=== PATIENT | female | born 1970 | race Caucasian/White ===

== ENCOUNTER 2018-11-26 11:17 | Emergency (ER) | payer OTHER ==
[2018-11-26] MEDS ORDERED: SODIUM CHLORIDE 0.9% 1,000 ML IV STA (11:43)
--- NOTE | 2018-11-26 11:49 | ED ---
General Adult HPI - General Chief complaint: Dizziness Stated complaint: Near syncope Time Seen by Provider: 11/26/18 11:36 Source: patient, RN notes reviewed Mode of arrival: ambulatory Limitations: no limitations - History of Present Illness Initial comments: Patient is a pleasant 48-year-old female presenting to the emergency Department with a near syncopal episode. Patient states she was sitting at work. Patient had an odd sensation from her chest to her neck to her head. Patient states this occurred 3 times. Patient states she felt like if she stood up she could' ve passed out. Patient did have some associated lightheadedness. No spinning type sensation. No headache. No confusion. No isolated weakness. No speech problems. No chest pain or dyspnea. Patient still has some minimal lightheadedness however states it is not bad enough to need any medication. - Related Data Home Medications Medication Instructions Recorded Confirmed Cholecalciferol [Vitamin D3] 10,000 units PO DAILY 03/30/14 11/26/18 Multivitamins, Thera [Multivitamin] 1 each PO BID 03/30/14 11/26/18 Vitamin B Complex 1 tab PO DAILY 11/26/18 11/26/18 Allergies Allergy/AdvReac Type Severity Reaction Status Date / Time No Known Allergies Allergy Verified 11/26/18 12:11 Review of Systems ROS Statement: Those systems with pertinent positive or pertinent negative responses have been documented in the HPI. ROS Other: All systems not noted in ROS Statement are negative. Constitutional: Denies: fever, chills Eyes: Denies: eye pain ENT: Denies: ear pain Respiratory: Denies: cough, dyspnea Cardiovascular: Denies: chest pain Endocrine: Denies: fatigue Gastrointestinal: Denies: abdominal pain, vomiting Genitourinary: Denies: dysuria Musculoskeletal: Denies: back pain Skin: Denies: rash Neurological: Reports: as per HPI. Denies: headache, weakness, numbness, paresthesias, confusion, abnormal gait Past Medical History Additional Past Medical History / Comment(s): palpitation, fibroids History of Any Multi-Drug Resistant Organisms: None Reported Past Surgical History: Bariatric Surgery, Section, Hysterectomy Additional Past Surgical History / Comment(s): breast biopsy, partial hysterectomy 09/2012, sleeve02/01/2014 Past Anesthesia/Blood Transfusion Reactions: Motion Sickness Past Psychological History: No Psychological Hx Reported Smoking Status: Never smoker Past Alcohol Use History: None Reported Past Drug Use History: None Reported - Past Family History Sister(s) Family Medical History: Cancer Additional Family Medical History / Comment(s): two sisters had breast cancer Father Family Medical History: Myocardial Infarction ([place]) Additional Family Medical History / Comment(s): heart disease leading to heart attack General Exam Limitations: no limitations General appearance: alert, in no apparent distress Head exam: Present: atraumatic, normocephalic Eye exam: Present: normal appearance, PERRL, EOMI. Absent: nystagmus ENT exam: Present: normal oropharynx Neck exam: Present: normal inspection. Absent: tenderness, meningismus Respiratory exam: Present: normal lung sounds bilaterally Cardiovascular Exam: Present: regular rate, normal rhythm Expanded Peripheral pulses: 2+: Radial (R), Radial (L), Dorsalis Pedis (R), Dorsalis Pedis (L) GI/Abdominal exam: Present: soft. Absent: tenderness Extremities exam: Present: normal inspection. Absent: pedal edema, calf tenderness Neurological exam: Present: alert, oriented X3, CN II-XII intact. Absent: motor sensory deficit Expanded Neurological exam: Present: protecting the airway Patient oriented to: Present: person, place, time Speech: Present: fluid speech Cranial nerves: EOM's Intact: Normal, Facial Sensation: Normal Cerebellar function: Finger to Nose: Normal Sensory exam: Upper Extremity Light Touch: Normal, Lower Extremity Light Touch: Normal Motor strength exam: RUE: 5, LUE: 5, RLE: 5, LLE: 5 Eye Response: (4) open spontaneously Motor Response: (6) obeys commands Verbal Response: (5) oriented Psychiatric exam: Present: normal affect, normal mood Skin exam: Present: normal color Course Vital Signs 11/26/18 11/26/18 11:26 13:18 Temperature 98.8 F 98.3 F Pulse Rate 90 70 Respiratory 18 16 Rate Blood Pressure 132/77 103/73 O2 Sat by Pulse 100 98 Oximetry EKG Findings - EKG Comments: EKG Findings:: Normal sinus rhythm at 90. MI 140. QRS 84. QT 364. QTC 445. Normal axis. Normal QRS. No acute ST change. Medical Decision Making - Medical Decision Making Patient reevaluated and resting comfortably in bed, patient symptom-free at this time. Patient has gotten up without any difficulty. Patient and family updated on results and need for follow-up. - Lab Data Result diagrams: 11/26/18 11:53 11/26/18 11:53 Lab Results 11/26/18 11/26/18 11/26/18 Range/Units 11:53 11:53 11:53 WBC 6.3 (3.8-10.6) k/uL RBC 4.57 (3.80-5.40) m/uL Hgb 13.0 (11.4-16.0) gm/dL Hct 40.0 (34.0-46.0) % MCV 87.5 (80.0-100.0) fL MCH 28.4 (25.0-35.0) pg MCHC 32.5 (31.0-37.0) g/dL RDW 12.7 (11.5-15.5) % Plt Count 262 (150-450) k/uL Neutrophils % 60 % Lymphocytes % 30 % Monocytes % 4 % Eosinophils % 3 % Basophils % 0 % Neutrophils # 3.8 (1.3-7.7) k/uL Lymphocytes # 1.9 (1.0-4.8) k/uL Monocytes # 0.3 (0-1.0) k/uL Eosinophils # 0.2 (0-0.7) k/uL Basophils # 0.0 (0-0.2) k/uL PT (9.0-12.0) sec INR (<1.2) APTT (22.0-30.0) sec D-Dimer (<0.60) mg/L FEU Sodium 140 (137-145) mmol/L Potassium 4.5 (3.5-5.1) mmol/L Chloride 107 (98-107) mmol/L Carbon Dioxide 25 (22-30) mmol/L Anion Gap 8 mmol/L BUN 19 H (7-17) mg/dL Creatinine 0.79 (0.52-1.04) mg/dL Est GFR (CKD-EPI)AfAm >90 (>60 ml/min/1.73 sqM) Est GFR (CKD-EPI)NonAf 89 (>60 ml/min/1.73 sqM) Glucose 105 H (74-99) mg/dL Calcium 9.6 (8.4-10.2) mg/dL Magnesium 2.1 (1.6-2.3) mg/dL Total Bilirubin 0.3 (0.2-1.3) mg/dL AST 17 (14-36) U/L ALT 22 (9-52) U/L Alkaline Phosphatase 57 (38-126) U/L Total Creatine Kinase 65 (30-135) U/L CK-MB (CK-2) <0.2 (0.0-2.4) ng/mL CK-MB (CK-2) Rel Index Troponin I <0.012 (0.000-0.034) ng/mL Total Protein 6.7 (6.3-8.2) g/dL Albumin 4.0 (3.5-5.0) g/dL TSH 1.460 (0.465-4.680) mIU/L Free T4 1.02 (0.78-2.19) ng/dL Free T3 pg/mL 3.3 (2.8-5.3) pg/ml 11/26/18 Range/Units 11:53 WBC (3.8-10.6) k/uL RBC (3.80-5.40) m/uL Hgb (11.4-16.0) gm/dL Hct (34.0-46.0) % MCV (80.0-100.0) fL MCH (25.0-35.0) pg MCHC (31.0-37.0) g/dL RDW (11.5-15.5) % Plt Count (150-450) k/uL Neutrophils % % Lymphocytes % % Monocytes % % Eosinophils % % Basophils % % Neutrophils # (1.3-7.7) k/uL Lymphocytes # (1.0-4.8) k/uL Monocytes # (0-1.0) k/uL Eosinophils # (0-0.7) k/uL Basophils # (0-0.2) k/uL PT 10.0 (9.0-12.0) sec INR 0.9 (<1.2) APTT 25.0 (22.0-30.0) sec D-Dimer 0.23 (<0.60) mg/L FEU Sodium (137-145) mmol/L Potassium (3.5-5.1) mmol/L Chloride (98-107) mmol/L Carbon Dioxide (22-30) mmol/L Anion Gap mmol/L BUN (7-17) mg/dL Creatinine (0.52-1.04) mg/dL Est GFR (CKD-EPI)AfAm (>60 ml/min/1.73 sqM) Est GFR (CKD-EPI)NonAf (>60 ml/min/1.73 sqM) Glucose (74-99) mg/dL Calcium (8.4-10.2) mg/dL Magnesium (1.6-2.3) mg/dL Total Bilirubin (0.2-1.3) mg/dL AST (14-36) U/L ALT (9-52) U/L Alkaline Phosphatase (38-126) U/L Total Creatine Kinase (30-135) U/L CK-MB (CK-2) (0.0-2.4) ng/mL CK-MB (CK-2) Rel Index Troponin I (0.000-0.034) ng/mL Total Protein (6.3-8.2) g/dL Albumin (3.5-5.0) g/dL TSH (0.465-4.680) mIU/L Free T4 (0.78-2.19) ng/dL Free T3 pg/mL (2.8-5.3) pg/ml - Radiology Data Radiology results: report reviewed (Computed tomography scan the brain shows no acute process), image reviewed (Chest x-ray shows some peribronchial cuffing) Disposition Clinical Impression: Near syncope Disposition: HOME SELF-CARE Condition: Stable Instructions (If sedation given, give patient instructions): Near Syncope (ED) Additional Instructions: Please follow-up with primary care physician in the next couple days for recheck. Return for passing out, confusion, chest pain or shortness of breath, worsening or changing symptoms or other concerns. Is patient prescribed a controlled substance at d/c from ED?: No Referrals: Gianfranco Nolan MD [STAFF PHYSICIAN] - 1-2 days Jarad Benton III, MD [STAFF PHYSICIAN] - 1-2 days Time of Disposition: 13:47
[2018-11-26 12:28] LABS: Basophils % (A) 0 %; Eosinophils # (A) 0.2 k/uL (0-0.7); Eosinophils % (A) 3 %; Lymphocytes # (A) 1.9 k/uL (1.0-4.8); Lymphocytes % (A) 30 %; MCH 28.4 pg (25.0-35.0); MCHC 32.5 g/dL (31.0-37.0); MCV 87.5 fL (80.0-100.0); Mean Platelet Volume 6.7; Monocytes # (A) 0.3 k/uL (0-1.0); Monocytes % (A) 4 %; Neutrophils # (A) 3.8 k/uL (1.3-7.7); Neutrophils % (A) 60 %; Platelet Count 262 k/uL (150-450); RBC 4.57 m/uL (3.80-5.40); RDW 12.7 % (11.5-15.5); WBC 6.3 k/uL (3.8-10.6)
--- NOTE | 2018-11-26 12:31 | CT ---
EXAMINATION TYPE: CT brain wo con DATE OF EXAM: 11/26/2018 COMPARISON: None HISTORY: 48-year-old female Syncope, Dizziness, SOB, Slight Headache TECHNIQUE: Examination was done in axial plane without intravenous contrast. Coronal and sagittal r econstructions performed. CT DLP: 1082.4 mGycm Automated exposure control for dose reduction was used. FINDINGS: There is no evidence of acute intracranial hemorrhage, acute ischemic changes, mass, mass-effect, or extra-axial fluid collection. There is no effacement of cerebral sulci or basal subarachnoid cister ns. There is no hydrocephalus. There is no midline shift. Matos-white matter distinction is preserv ed. Hypodensity in the right basal ganglia could represent an incidental old lacunar infarct or prominent perivascular space. Paranasal sinuses and mastoid air cells well pneumatized. Orbits and globes are intact. IMPRESSION: No acute intracranial abnormality seen.
[2018-11-26 12:35] LABS: ALT 22 U/L (9-52); AST 17 U/L (14-36); Alkaline Phosphatase 57 U/L (38-126); Anion Gap 8 mmol/L; Blood Urea Nitrogen 19 mg/dL (7-17); Calcium 9.6 mg/dL (8.4-10.2); Carbon Dioxide 25 mmol/L (22-30); Chloride 107 mmol/L (98-107); Glucose 105 mg/dL (74-99); Magnesium 2.1 mg/dL (1.6-2.3); Potassium 4.5 mmol/L (3.5-5.1); Sodium 140 mmol/L (137-145); Total Bilirubin 0.3 mg/dL (0.2-1.3); Total Protein 6.7 g/dL (6.3-8.2)
[2018-11-26 12:36] LABS: D-Dimer 0.23 mg/L FEU (<0.60); INR 0.9 (<1.2)
--- NOTE | 2018-11-26 12:42 | XR ---
EXAMINATION TYPE: XR chest 2V DATE OF EXAM: 11/26/2018 COMPARISON: 02/03/2014 HISTORY: 48-year-old female syncope TECHNIQUE: PA and lateral views FINDINGS: Heart normal size. Aorta and pulmonary vasculature within normal limits. Peribronchial cuffing is not ed. No consolidation or pleural effusion. IMPRESSION: Peribronchial cuffing suggesting bronchitis or asthma.
[2018-11-26 12:50] LABS: T4, Free (Free Thyroxine) 1.02 ng/dL (0.78-2.19)
[2018-11-26 13:02] LABS: Creatine Kinase 65 U/L (30-135)
[2018-11-26 13:14] LABS: Creatine Kinase MB <0.2 ng/mL (0.0-2.4); Troponin I <0.012 ng/mL (0.000-0.034)
[2018-11-26 13:22] VITALS: BP 103/73; PULSE 70; RESP 16; TEMP 98.3
[2018-11-26 14:31] LABS: Appearance,Urine Cloudy (Clear); Bacteria,Urine Moderate /hpf; Bilirubin,Urine Negative (Negative); Blood,Urine Negative (Negative); Budding Yeast,Urine Rare /hpf; Color,Urine Dark Yellow; Glucose,Urine (UA) Negative (Negative); Ketones,Urine Negative (Negative); Leukocyte Esterase,Urine Negative (Negative); Mucus,Urine Many /hpf; Nitrite,Urine Negative (Negative); Protein,Urine Trace (Negative); RBC,Urine 6 /hpf (0-5); Specific Gravity,Urine 1.023 (1.001-1.035); Squamous Epithelial Cell,Urine 14 /hpf (0-4); Urobilinogen,Urine <2.0 mg/dL (<2.0); WBC,Urine 7 /hpf (0-5)
== END 2018-11-26 14:10 | disposition home or self-care (01) ==
LOC: EC 11:17
DX: R55 Syncope and collapse (principal); R42 Dizziness and giddiness
CPT/HCPCS: 36415; 70450; 71046; 80053; 81001; 82550; 82553; 83735; 84439; 84443; 84481; 84484; 85025; 85379; 85610; 85730; 93005; 96360; 99284

== ENCOUNTER → 2022-02-21 | Outpatient (CLI) | payer BC ==
--- NOTE | 2022-02-22 13:41 | MM ---
Reason for exam: clinical finding. History: Family history of breast cancer in sister at age 30 and breast cancer in sister at age 40. Benign excisional biopsy of the left breast, 2011. Indicated problem(s): lump or thickening in the left breast. Physical Findings: A clinical breast exam by your physician is recommended on an annual basis and results should be correlated with mammographic findings. MG Diagnostic Mammo w CAD BERNABE Bilateral CC and MLO view(s) were taken. The breast tissue is heterogeneously dense. This may lower the sensitivity of mammography. 4cm spiculated mass 1 o'clock left breast. 9mm nodule seen anteriorly. No mass or suspicious calcifications in the right breast. Results were given to the patient verbally at the time of the exam. ASSESSMENT: Incomplete: need additional imaging evaluation, BI-RAD 0 RECOMMENDATION: Ultrasound of the left breast. Manage patient on a clinical basis.
--- NOTE | 2022-02-22 13:44 | USB ---
Reason for exam: additional evaluation requested from abnormal screening. History: Family history of breast cancer in sister at age 30 and breast cancer in sister at age 40. Benign excisional biopsy of the left breast, 2011. Physical Findings: A clinical breast exam by your physician is recommended on an annual basis and results should be correlated with mammographic findings. US Breast Limited LT Left limited breast ultrasound including focal area of concern, retroareolar and axilla demonstrates a 9 x 5 x 7mm oval, cystic lesion at 2 o'clock and a 27 x 29 x 30mm irregular, spiculated, solid, hypoechoic lesion at 3 o'clock palpable. Results were given to the patient verbally at the time of the exam. ASSESSMENT: Highly suggestive of malignancy, BI-RAD 5 RECOMMENDATION: Ultrasound core biopsy of the left breast. Manage patient on a clinical basis. Called Dr. Vargas's office with mammographic findings and office will call patient with appointment time. PRELIMINARY REPORT CALLED AND FAXED TO DR. VARGAS ON 02/22/22.
== END | disposition home or self-care (01) ==
LOC: RADMAMWWP 08:44
PROVIDERS: ATTEND Family Medicine
DX: R92.8 Other abnormal and inconclusive findings on diagnostic imaging of breast (principal); N60.02 Solitary cyst of left breast; Z80.3 Family history of malignant neoplasm of breast
CPT/HCPCS: 77066

== ENCOUNTER → 2022-03-06 | Day surgery (SDC) | payer BC ==
--- NOTE | 2022-03-06 14:13 | USB ---
EXAMINATION TYPE: US biopsy breast VAD LT, MG diagnostic mammo LT wo CAD DATE OF EXAM: 03/06/2022 CLINICAL HISTORY: N62 Lump Left breast. Abnormal ultrasound and mammogram. TECHNIQUE: Ultrasound guided core biopsy of left breast with clip placement and follow-up diagnostic two-view mammogram.. COMPARISON: Prior mammogram and ultrasound February 21, 2022 FINDINGS: The procedure of ultrasound guided core biopsy was explained to the patient. Benefits, alt ernatives, and risks were discussed. An informed consent was then obtained. The patient was placed in supine positioning for imaging and for the procedure. Preprocedure imaging redemonstrates a large palpable irregular hypoechoic mass measuring near 3.0 cm long axis in the edwige p left breast at 3:00 position. The overlying skin was prepped and draped in usual sterile fashion. L idocaine is used as anesthetic into the skin and subcutaneous tissue up to area of concern in the lef t breast. Under ultrasound guidance, a vacuum assisted biopsy gun device was used to obtain 2 core samples. Fo llowing this, a biopsy clip was left in lesion. The patient tolerated the procedure well without any immediate complication. The patient was kept in the radiology department for short stay after the procedure and then discharged home in stable condi tion. Postprocedure mammogram shows successful deployment of clip within the lesion along the slightly infe rior medial aspect. IMPRESSION: Successful, uncomplicated ultrasound guided core biopsy of area of concern in the left br east, full pathology results to follow. High index of suspicion noted at time of procedure.
== END ==
LOC: RADUSWWP 12:05
PROVIDERS: ATTEND Surgery
DX: D05.12 Intraductal carcinoma in situ of left breast (principal); R92.8 Other abnormal and inconclusive findings on diagnostic imaging of breast
CPT/HCPCS: 88305; 88342; 88341; 77065; 19083; A4648

== ENCOUNTER → 2022-04-06 | Outpatient (CLI) | payer OTHER ==
--- NOTE | 2022-04-12 07:41 | PE ---
EXAMINATION TYPE: PET CT fusion skull to thigh DATE OF EXAM: 04/06/2022 COMPARISON: CT abdomen pelvis 11/13/2021 Prior PET/CT: None HISTORY: Breast cancer TECHNIQUE: Following the intravenous administration of 10.57 mCi of F-18 FDG, whole body images are performed from the skull base to the midthigh. Images are reviewed on the computer in the coronal, a xial, and sagittal planes. Reconstructed rotating images are created on independent workstation and reviewed on the computer. A localization and attenuation correction CT is performed in conjunction with the PET scan. DLP: 474.65 mGycm SCAN: Initial Blood glucose: 88 mg/dL Average Mediastinum SUV: 1.17 Average Liver SUV: 1.89 FINDINGS: NECK: No abnormal uptake THORAX: There is a large ring of intensity within the left breast SUV value of 6.04 compatible with n eoplasm. This may has central necrosis or postsurgical change. More inferior and posterior adjacent t o the chest wall is an additional focus of left breast uptake measuring 8.49 compatible with neoplasm . This extends to the chest wall. There is a focus of intense radiotracer within the retrosternal region on the left may be an retromam john lymph node. Image 76, SUV 7.93. No suspicious mediastinal or axillary adenopathy is identified. ABDOMEN: No abnormal uptake PELVIS: No abnormal uptake OSSEOUS STRUCTURES: No abnormal uptake LOCALIZATION CT: Patient's left breast mass secondary chest wall mass well-visualized. The area of up take on the PET scan in the retrosternal region can be identified. Post gastric surgery changes are e vident. COMPARISON: No significant interval change within the [id number] IMPRESSION: 1. Uptake at the patient's left breast with 2 foci including the second smaller chest wall lesion com patible with neoplasm. 2. Uptake near the level of the left sternal clavicular junction posterior to the sternum may be a re tromammary lymph node, this area is suspicious for metastasis. 3. No additional suspicious areas of uptake to suggest more distant metastases.
== END | disposition home or self-care (01) ==
LOC: RADPETMAIN 16:19
PROVIDERS: ATTEND Internal Medicine Hematology & Oncology
DX: C50.919 Malignant neoplasm of unspecified site of unspecified female breast (principal); J98.8 Other specified respiratory disorders; Z17.1 Estrogen receptor negative status [ER-]
CPT/HCPCS: 78815; A9552

== ENCOUNTER 2022-04-17 08:43 | Day surgery (SDC) | payer OTHER ==
[2022-04-13 11:27] VITALS: BMI 45.3
[~2022-04-17 08:43] MED LIST: ACETAMINOPHEN TAB 500 MG TAB PO PRN; DEXAMETHASONE SOD PHOSPHATE 4 MG/ML 1 ML VIAL IV ONE; HEPARIN SODIUM,PORCINE/PF 5,000 UNIT/0.5 ML SYRINGE SQ PRN; HYDROmorphone 0.5 MG/0.5 ML SYRINGE IVP PRN; LACTATED RINGERS 1,000 ML IV SCH; LIDOCAINE 1% (10MG/ML) FOR IV START INTRADERMA PRN; MIDAZOLAM 2 MG/2 ML VIAL IV PRN; ONDANSETRON 4 MG/2 ML VIAL IVP ONE; Pre Op ABX Message 1 EACH MISC MISCELLANE ONE
--- NOTE | 2022-04-17 09:55 | P.GSHP ---
History of Present Illness H&P Date: 04/17/22 Chief Complaint: Left breast cancer This a 49-year-old female with recent diagnosis of left breast cancer. Patient presents today for Port-A-Cath placement. Past Medical History Past Medical History: Cancer, GERD/Reflux Additional Past Medical History / Comment(s): palpitation,. NEW DX LT BREAST CANCER 03/06/22 History of Any Multi-Drug Resistant Organisms: None Reported Past Surgical History: Bariatric Surgery, Breast Surgery, Section, Hysterectomy Additional Past Surgical History / Comment(s): left breast biopsy, partial hysterectomy 09/2012, sleeve 02/01/2014, Past Anesthesia/Blood Transfusion Reactions: Motion Sickness Smoking Status: Never smoker - Past Family History Sister(s) Family Medical History: Cancer Additional Family Medical History / Comment(s): two sisters had breast cancer Father Family Medical History: Myocardial Infarction ([place]) Additional Family Medical History / Comment(s): heart disease leading to heart attack Medications and Allergies Home Medications Medication Instructions Recorded Confirmed Type No Known Home Medications 04/13/22 04/17/22 History Allergies Allergy/AdvReac Type Severity Reaction Status Date / Time No Known Allergies Allergy Verified 04/17/22 09:29 Surgical - Exam Vital Signs Temp Pulse Resp BP Pulse Ox 98.2 F 84 16 131/69 98 04/17/22 09:36 04/17/22 09:36 04/17/22 09:36 04/17/22 09:36 04/17/22 09:36 - General well developed, well nourished, no distress - Eyes PERRL - ENT normal pinna - Neck no masses - Respiratory normal expansion - Cardiovascular Rhythm: regular - Abdomen Abdomen: soft - Integumentary 4 cm mass left breast upper outer quadrant Assessment and Plan Assessment: Left breast cancer. We'll perform Port-A-Cath placement.
[2022-04-17] MEDS ORDERED: LIDOCAINE 2% INJ 20 MG/ML (2 ML VIAL) ONE (10:11)
[2022-04-17] MEDS ORDERED: fentaNYL (PF) 50 MCG/ML 2 ML AMP ONE (10:11)
[2022-04-17] MEDS ORDERED: PROPOFOL 10 MG/ML 20 ML VIAL IV ONE (10:11)
[2022-04-17] MEDS ORDERED: MIDAZOLAM 2 MG/2 ML VIAL ONE (10:11)
[2022-04-17] MEDS ORDERED: IOPAMIDOL-370 50ML BTL IRRIGATION ONE (10:15)
[2022-04-17] MEDS ORDERED: HEPARIN SODIUM,PORCINE 100 UNIT/ML 5 ML VIAL IV ONE (10:15)
[2022-04-17] MEDS ORDERED: BUPIVACAIN-EPI 0.25%-1:200,000 30 ML VIAL SQ ONE ×3 (10:15→11:01)
[2022-04-17 11:14] VITALS: TEMP 97.3
--- NOTE | 2022-04-17 11:16 | P.OP ---
Date of Procedure: 04/17/22 Preoperative Diagnosis: Left breast cancer Postoperative Diagnosis: Left breast cancer Procedure(s) Performed: Right subclavian Port-A-Cath Anesthesia: JOSE JUAN Surgeon: Kunal Morrell Estimated Blood Loss (ml): 5 Pathology: other Condition: stable Disposition: PACU Description of Procedure: The patient was placed on the operating table in the supine position. The patient received IV sedation. The patient's chest was prepped and draped in the usual sterile fashion. A roll had been placed between the shoulder blades in a longitudinal fashion. After prepping and draping the skin was anesthetized 1% local Xylocaine. And then using the Seldinger technique the subclavian vein was cannulated. A wire was placed into the vein and fluoroscopy position the wire at the atrial caval junction. Next the dilator sheath was placed over top the wire and the wire was withdrawn. The catheter was positioned at the atriocaval position. Due to the patient's obesity. The Port-A-Cath was positioned more centrally close to the sternum. The catheter was positioned the tunneler and placed at the needle site. The catheter was placed through the sheath after the dilator was withdrawn. The sheath was then withdrawn. Position of the catheter was confirmed with fluoroscopy. The Port-A-Cath was connected to the catheter. The Port-A-Cath was flushed with saline and then heparinized saline. The skin was closed interrupted 3-0 Monocryl suture. Dermabond was applied. Patient tolerated procedure well and was sent to recovery room stable condition.
[2022-04-17] MEDS ORDERED: HYDROmorphone 0.5 MG/0.5 ML SYRINGE IVP ONE (11:30)
--- NOTE | 2022-04-17 11:46 | XR ---
EXAMINATION TYPE: XR chest 1V portable DATE OF EXAM: 04/17/2022 Comparison: 11/26/2018 Clinical History: 52-year-old female Right subclavian Port-A-Cath Findings: Low lung volumes. Heart mildly enlarged. Mild interstitial prominence probably due to the diminished lung volumes. Right anterior chest wall injection port. There is tortuous course of the proximal cath eter. Subclavian access. Very subtle kinking where the catheter crosses the medial clavicle. Catheter tip probably in the region of the right brachiocephalic vein confluence. Impression: 1. Right-sided injection port. Tortuous/redundant proximal aspect of the catheter. Subclavian access. Very subtle kinking where the catheter crosses the medial right clavicle. Catheter tip is high proba gena near the right brachiocephalic vein confluence. 2. Mild cardiomegaly and hypoventilatory changes.
[2022-04-17 12:38] VITALS: BP 112/69; PULSE 77; RESP 18
--- NOTE | 2022-04-17 13:26 | FL ---
Fluoroscopy HISTORY: Port-A-Cath placement 39 seconds fluoroscopy time supplied to the referring clinician. 1 intraoperative C-arm images docum ent the procedure. See dictated report from general surgery.
== END 2022-04-17 12:52 | disposition home or self-care (01) ==
LOC: OR 08:43
PROVIDERS: ATTEND Surgery
DX: C50.912 Malignant neoplasm of unspecified site of left female breast (principal); K21.9 Gastro-esophageal reflux disease without esophagitis; R00.2 Palpitations; Z98.84 Bariatric surgery status; Z98.891 History of uterine scar from previous surgery; Z90.710 Acquired absence of both cervix and uterus; Z80.3 Family history of malignant neoplasm of breast; Z82.49 Family history of ischemic heart disease and other diseases of the circulatory system
CPT/HCPCS: 77001; 71045; 36561; C1788; J2250; J1642; J1100; J2405; J3010; J2704; J1170; Q9967; J1644; J2001

== ENCOUNTER → 2022-06-22 | Outpatient (CLI) | payer OTHER ==
[2022-06-22 23:18] LABS: ALT 19 U/L (8-44); AST 14 U/L (13-35); African American GFR (CKD) 114.6 (60.0-200.0); Albumin 4.3 g/dL (3.8-4.9); Albumin/Globulin Ratio 2.15 (1.60-3.17); Alkaline Phosphatase 81 U/L (41-126); BUN/Creat Ratio 18.29 Ratio (12.00-20.00); Blood Urea Nitrogen 12.8 mg/dL (9.0-27.0); Calcium 9.3 mg/dL (8.7-10.3); Carbon Dioxide 27.2 mmol/L (20.0-27.5); Chloride 107 mmol/L (96-109); Glucose 120 mg/dL (70-110); Non-African American GFR(CKD) 98.9 (60.0-200.0); Potassium 4.2 mmol/L (3.5-5.5); Sodium 143 mmol/L (135-145); Total Bilirubin <0.15 mg/dL (0.30-1.20); Total Protein 6.3 g/dL (6.2-8.2)
[2022-06-22 23:23] LABS: Basophils # (A) 0.05 X 10*3/uL (0.00-0.10); Basophils % (A) 0.8 %; Eosinophils % (A) 1.7 %; HCT 35.6 % (37.2-46.3); HGB 11.2 g/dL (12.0-15.0); Immature Grans, Automated 0.2 %; Lymphocytes # (A) 2.15 X 10*3/uL (0.90-5.00); MCH 28.7 pg (27.0-32.0); MCHC 31.5 g/dL (32.0-37.0); MCV 91.3 fL (80.0-97.0); Mean Platelet Volume 10.8 fL (9.5-12.2); Monocytes # (A) 0.37 X 10*3/uL (0.20-1.00); Monocytes % (A) 6.2 %; NRBC Per 100 WBC 0 /100 WBCS (0.0-0.0); Neutrophils % (A) 55.1 %; Platelet Count 262 X 10*3/uL (140-440); WBC 5.98 X 10*3/uL (4.50-10.00)
== END | disposition home or self-care (01) ==
LOC: LABWHC1 16:50
PROVIDERS: ATTEND Internal Medicine Hematology & Oncology
DX: C50.412 Malignant neoplasm of upper-outer quadrant of left female breast (principal); M12.9 Arthropathy, unspecified; J45.998 Other asthma; Z17.1 Estrogen receptor negative status [ER-]
CPT/HCPCS: 36415; 80053; 85025

== ENCOUNTER → 2022-07-06 | Outpatient (CLI) | payer OTHER ==
--- NOTE | 2022-07-06 15:24 | PE ---
EXAMINATION TYPE: PET CT fusion skull to thigh DATE OF EXAM: 07/06/2022 COMPARISON: Prior PET/CT April 06, 2022 HISTORY: Left-sided breast cancer diagnosed January 2022 TECHNIQUE: Following the intravenous administration of 12.9 mCi of F-18 FDG, whole body images are p erformed from the skull base to the midthigh. Images are reviewed on the computer in the coronal, ax ial, and sagittal planes. Reconstructed rotating images are created on independent workstation and r eviewed on the computer. A localization and attenuation correction CT is performed in conjunction w ith the PET scan. Blood glucose level equals 94. SCAN: Subsequent Scan FINDINGS: SKULL BASE AND NECK: No new areas of abnormal hypermetabolic uptake. CHEST, MEDIASTINUM, AND HILAR REGION: Positive treatment response to known left breast neoplasm now m easuring 3.0 x 2.8 cm on axial image 90 diminished in size from prior study with surgical clip anteri or inferior aspect currently ametabolic. Smaller hypermetabolic mass inferior and medial to this near the chest wall also diminished in size m easuring 1.7 x 1.0 cm current study image 100 and currently ametabolic. Abnormal for metabolic lymph nodes in the anterior superior mediastinum left aspect anterior to the a ortic arch are now ametabolic and not visualized. No new areas of abnormal hypermetabolic uptake. ABDOMEN AND PELVIS: Normal excretion. No new areas of abnormal hypermetabolic uptake. OSSEOUS STRUCTURES: Mild diffuse uptake presumed posttreatment response. OTHER CT: New right-sided subclavian catheter terminating before the SVC confluence. Surgical changes from gastric sleeve procedure redemonstrated. Uterus surgically absent or markedly a trophic. IMPRESSION: Complete positive treatment response as detailed above on PET images. Significant partial positive treatment response on CT images.
== END | disposition home or self-care (01) ==
LOC: RADXRMAIN 13:30
PROVIDERS: ATTEND Internal Medicine Hematology & Oncology
DX: C50.412 Malignant neoplasm of upper-outer quadrant of left female breast (principal)
CPT/HCPCS: 78815; A9552

== ENCOUNTER → 2022-08-06 | Outpatient (CLI) | payer OTHER ==
--- NOTE | 2022-08-07 09:15 | CA ---
Transthoracic Echo Report Name: Ria Castro Age: 52 Gender: F : 1970 Exam Date: 08/06/2022 13:53 Exam Location: [facility] Ht (in): 62 Wt (lb): 235 Ordering Physician: Josh Johnston MD Attending/Referring Phys: Social Services Director Rayna Webb RDCS Procedure CPT: Indications: Z01.818 ENCOUNTER FOR OTHER PREPROCEDURAL EXAMINAT Cardiac Hx: Technical Quality: Fair Contrast 1: Total Dose (mL): Contrast 2: Total Dose (mL): MEASUREMENTS (Male / Female) Normal Values 2D ECHO LV Diastolic Diameter PLAX 3.7 cm 4.2 - 5.9 / 3.9 - 5.3 cm LV Systolic Diameter PLAX 2.4 cm IVS Diastolic Thickness 1.4 cm 0.6 - 1.0 / 0.6 - 0.9 cm LVPW Diastolic Thickness 1.4 cm 0.6 - 1.0 / 0.6 - 0.9 cm LV Relative Wall Thickness 0.8 RV Internal Dim ED PLAX 3.0 cm LA Volume 48.6 cm??? 18 - 58 / 22 - 52 cm??? M-MODE Aortic Root Diameter MM 2.7 cm LA Systolic Diameter MM 3.7 cm LA Ao Ratio MM 1.3 AV Cusp Separation MM 2.0 cm DOPPLER AV Peak Velocity 112.5 cm/s AV Peak Gradient 5.1 mmHg LVOT Peak Velocity 83.5 cm/s LVOT Peak Gradient 2.8 mmHg MV Area PHT 3.3 cm??? Mitral E Point Velocity 71.8 cm/s Mitral A Point Velocity 81.4 cm/s Mitral E to A Ratio 0.9 MV Deceleration Time 232.2 ms FINDINGS Left Ventricle Moderately increased left ventricular wall thickness. Normal left ventricular systolic function with no obvious regional wall motion abnormalities. Left ventricular ejection fraction is estimated at 55-60 %. Right Ventricle Normal right ventricular size and function. Right ventricular systolic pressure within normal limits. Right Atrium Normal right atrial size. Left Atrium Normal left atrial size. No evidence for an atrial septal defect. Mitral Valve Structurally normal mitral valve. No mitral stenosis, regurgitation or prolapse. Aortic Valve Trileaflet aortic valve. No aortic valve stenosis or regurgitation. Tricuspid Valve Structurally normal tricuspid valve. Mild tricuspid regurgitation. Pulmonic Valve Structurally normal pulmonic valve. Trace pulmonic regurgitation. Pericardium No pericardial effusion. Aorta Normal size aortic root and proximal ascending aorta. CONCLUSIONS 1. normal size and systolic function 2. Mild tricuspid regurgitation 3. No pericardial effusion Previewed by: Dr. Barbara Burgess MD (Electronically Signed) Final Date: 07 August 2022 09:15
== END | disposition home or self-care (01) ==
LOC: RADECHMAIN 13:51
PROVIDERS: ATTEND Internal Medicine Hematology & Oncology
DX: Z01.818 Encounter for other preprocedural examination (principal); I07.9 Rheumatic tricuspid valve disease, unspecified
CPT/HCPCS: 93306

== ENCOUNTER 2022-08-28 12:54 | Day surgery (SDC) | payer OTHER ==
[2022-08-28 13:53] VITALS: BP 117/68; PULSE 92; RESP 16; TEMP 97.2
--- NOTE | 2022-08-29 08:42 | IR ---
Port-A-Cath check HISTORY: Chest portable occlusion, malfunctioning Port-A-Cath Patient's indwelling port was evaluated under real-time fluoroscopy, comparison to previous image 04/04 The port was accessed by the interventional radiology nurse. Gentle hand-injection of contrast materi al was performed under fluoroscopic observation. Catheter was subsequently flushed and flushed again with heparin flush. Patient remained in stable condition without complication. The port is intact. There is no evident leak. Catheter tip may be within a tributary of the superior vena cava or innominate vein. Contrast flows away from the catheter tip consistent with intravenous p lacement. IMPRESSION: Suboptimal catheter tip placement, referring clinician was informed of the findings at th e time of performance of the exam.
== END 2022-08-28 14:37 | disposition home or self-care (01) ==
LOC: CATHCVL 12:54
PROVIDERS: ATTEND Radiology Diagnostic Radiology
DX: Z45.09 Encounter for adjustment and management of other cardiac device (principal); J45.998 Other asthma; Z90.710 Acquired absence of both cervix and uterus; Z98.891 History of uterine scar from previous surgery; Z80.3 Family history of malignant neoplasm of breast; Z17.1 Estrogen receptor negative status [ER-]; Z14.8 Genetic carrier of other disease; Z71.3 Dietary counseling and surveillance
CPT/HCPCS: 36598

== ENCOUNTER 2022-09-03 11:43 | Day surgery (SDC) | payer OTHER ==
[~2022-09-03 11:43] MED LIST changes: -DEXAMETHASONE SOD PHOSPHATE 4 MG/ML 1 ML VIAL IV ONE; -HYDROmorphone 0.5 MG/0.5 ML SYRINGE IVP PRN; -LACTATED RINGERS 1,000 ML IV SCH; -LIDOCAINE 1% (10MG/ML) FOR IV START INTRADERMA PRN; -MIDAZOLAM 2 MG/2 ML VIAL IV PRN; -ONDANSETRON 4 MG/2 ML VIAL IVP ONE
[2022-09-03] MEDS ORDERED: ONDANSETRON 4 MG/2 ML VIAL ONE (12:45)
[2022-09-03] MEDS ORDERED: LACTATED RINGERS 1,000 ML IV ONE (12:57)
[2022-09-03] MEDS ORDERED: ONDANSETRON 4 MG/2 ML VIAL IVP ONE (12:59)
[2022-09-03] MEDS ORDERED: DEXAMETHASONE SOD PHOSPHATE 4 MG/ML 1 ML VIAL IVP ONE (12:59)
--- NOTE | 2022-09-03 13:26 | P.GSHP ---
History of Present Illness H&P Date: 09/03/22 Chief Complaint: Port-A-Cath malfunction, history of breast cancer This a 51-year-old female who presents today for removal of Port-A-Cath insertion of new Port-A-Cath. Patient's history of breast cancer. Past Medical History Past Medical History: Cancer, GERD/Reflux Additional Past Medical History / Comment(s): palpitation,. 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 Past Anesthesia/Blood Transfusion Reactions: No Reported Reaction, Motion Sickness Smoking Status: Never smoker - Past Family History Sister(s) Family Medical History: Cancer Additional Family Medical History / Comment(s): two sisters had breast cancer Father Family Medical History: Myocardial Infarction ([place]) Additional Family Medical History / Comment(s): heart disease leading to heart attack Medications and Allergies Home Medications Medication Instructions Recorded Confirmed Type Aprepitant [Emend] 80 mg PO DAILY 08/28/22 08/30/22 History Cyclobenzaprine [Flexeril] 5 mg PO QID PRN 08/28/22 08/30/22 History Gabapentin [Neurontin] 300 mg PO TID 08/28/22 08/30/22 History OLANZapine [ZyPREXA] 2.5 mg PO HS 08/28/22 08/30/22 History Ondansetron [Zofran] 4 mg PO Q4HR PRN 08/28/22 08/30/22 History Ascorbic Acid [Vitamin C] 1 tab PO DAILY 08/30/22 08/30/22 History Cholecalciferol [Vitamin D3 (125 2 tab PO DAILY 08/30/22 08/30/22 History Mcg = 5000 Iu)] Krill/Om-3/Dha/Epa/Phospho/Ast 1 each PO DAILY 08/30/22 08/30/22 History [[place]-3 Krill Oil 300 mg Sfgl] Multivitamin [Multivitamins Adult 1 tab PO DAILY 08/30/22 08/30/22 History Gummies] Vit B Comp/Folic/Choline/Inosi 1 each PO DAILY 08/30/22 08/30/22 History [B-100 Complex Capsule] Allergies Allergy/AdvReac Type Severity Reaction Status Date / Time No Known Allergies Allergy Verified 09/03/22 12:08 Surgical - Exam Vital Signs Temp Pulse Resp BP Pulse Ox 96.9 F L 98 16 119/69 98 09/03/22 13:00 09/03/22 13:00 09/03/22 13:00 09/03/22 13:00 09/03/22 13:00 - General well developed, well nourished, no distress - Eyes PERRL - ENT normal pinna - Neck no masses, no bruits - Respiratory normal expansion - Cardiovascular Rhythm: regular - Abdomen Abdomen: soft, non tender Assessment and Plan Assessment: Patient will have her right subcu Port-A-Cath removal. And New Port-A-Cath placed.
[2022-09-03] MEDS ORDERED: LIDOCAINE 2% INJ 20 MG/ML (2 ML VIAL) ONE (14:00)
[2022-09-03] MEDS ORDERED: fentaNYL (PF) 50 MCG/ML 2 ML AMP ONE (14:00)
[2022-09-03] MEDS ORDERED: MIDAZOLAM 2 MG/2 ML VIAL ONE (14:00)
[2022-09-03] MEDS ORDERED: ceFAZolin 1,000 MG VIAL ONE (14:00)
[2022-09-03] MEDS ORDERED: SODIUM CHLORIDE 0.9% 100 ML BAG ONE (14:00)
[2022-09-03] MEDS ORDERED: PROPOFOL 10 MG/ML 20 ML VIAL IV ONE (14:00)
[2022-09-03] MEDS ORDERED: BUPIVACAINE (PF) 0.5% 30 ML VIAL SQ ONE (14:36)
[2022-09-03] MEDS ORDERED: HEPARIN SODIUM,PORCINE 100 UNIT/ML 5 ML VIAL IV ONE (14:36)
[2022-09-03 15:15] VITALS: TEMP 97.4
--- NOTE | 2022-09-03 15:15 | XR ---
EXAMINATION TYPE: XR chest 1V DATE OF EXAM: 09/03/2022 COMPARISON: 04/17/2022 HISTORY: 52-year-old female Mediport insertion TECHNIQUE: Single frontal view of the chest is obtained. FINDINGS: Heart upper limits of normal in size. Hazy densities related to patient body habitus. Left anterior c hest wall injection port with subclavian access. Catheter tip at the mid to lower SVC. The previous r ight-sided catheter has been removed. No consolidation, pneumothorax, or pleural effusion. IMPRESSION: Left anterior chest wall injection port with subclavian access. Catheter tip at the mid to lower SVC. Large patient body habitus. No definite acute process.
--- NOTE | 2022-09-03 15:25 | P.OP ---
Date of Procedure: 09/03/22 Preoperative Diagnosis: history of breast cancer, Port-A-Cath malfunction Postoperative Diagnosis: same Procedure(s) Performed: removal of right subclavian Port-A-Cath Insertion of left subclavian Port-A-Cath Anesthesia: JOSE JUAN Surgeon: Kunal Morrell Estimated Blood Loss (ml): 5 Pathology: none sent Condition: stable Disposition: PACU Description of Procedure: the patient's placed on the operating table in the supine position. She received general endotracheal tube anesthesia. Her chest was prepped and draped usual fashion. The skin was incised at the right subclavian port site. And then using blunt and sharp dissection with cautery the port was dissected free of in the catheter and port were removed completely. The skin was then closed interrupted 3-0 Monocryl suture. Next using the Seldinger technique the left subclavian vein was cannulized. A blush was seen in the syringe with the needle cannulated the subclavian vein. The wire was placed through the needle into the vein. The wire position was confirmed with fluoroscopy. The wire appeared to be entering the superior vena cava. At this point the needle was withdrawn. The introducer sheath placed over top the wire after suitable skin incision was made and the port site was dissected. The wire was withdrawn. The catheter was placed through the introducer sheath. And then the initial sheath was removed. The catheter was withdrawn to the point the atriocaval junction. The catheter was then cut and then secured to the port. The port was placed in the pocket. And then the skin was closed interrupted 3-0 Monocryl suture. The port was flushed with saline. And then a Dinh needle was used to access the port and then the port was flushed with heparinized saline. Sterile dressing applied. The knee Dinh needle was left in place for port access. Patient top she will well she was sent to recovery room stable condition.
[2022-09-03] MEDS ORDERED: HYDROmorphone 0.5 MG/0.5 ML SYRINGE IVP ONE (15:27)
[2022-09-03 16:13] VITALS: BP 137/79; PULSE 81; RESP 15
--- NOTE | 2022-09-03 19:33 | FL ---
EXAMINATION TYPE: FL guided central line placement DATE OF EXAM: 09/03/2022 FLUOROSCOPY Fluoroscopy time of 4 seconds was used during left-sided Port-A-Cath placement for breast cancer anders tment. 1 image/s document/s the procedure.
== END 2022-09-03 16:45 | disposition home or self-care (01) ==
LOC: OR 11:43
PROVIDERS: ATTEND Surgery
DX: T82.514A Breakdown (mechanical) of infusion catheter, initial encounter (principal); R00.2 Palpitations; I49.9 Cardiac arrhythmia, unspecified; Z79.899 Other long term (current) drug therapy
CPT/HCPCS: 77001; 71045; 36590; 36561; J2250; J1642; J1100; J2405; J0690; J3010; J2704; J1170; J1644; J2001

== ENCOUNTER 2022-11-13 06:24 | Day surgery (SDC) | payer OTHER ==
[2022-11-08 14:22] VITALS: BMI 40.8
[~2022-11-13 06:24] MED LIST changes: +DEXAMETHASONE SOD PHOSPHATE 4 MG/ML 1 ML VIAL IV ONE; +LACTATED RINGERS 1,000 ML IV SCH; +LIDOCAINE 1% (10MG/ML) FOR IV START INTRADERMA PRN; +MIDAZOLAM 2 MG/2 ML VIAL IV PRN; +ONDANSETRON 4 MG/2 ML VIAL IVP ONE
[2022-11-13 07:29] LABS: Basophils % (A) 1 %; Eosinophils # (A) 0.4 k/uL (0-0.7); Eosinophils % (A) 8 %; HCT 36.6 % (34.0-46.0); HGB 12.1 gm/dL (11.4-16.0); Lymphocytes # (A) 1.3 k/uL (1.0-4.8); Lymphocytes % (A) 26 %; MCH 30.3 pg (25.0-35.0); MCHC 33.2 g/dL (31.0-37.0); MCV 91.3 fL (80.0-100.0); Monocytes # (A) 0.3 k/uL (0-1.0); Monocytes % (A) 6 %; Neutrophils # (A) 2.8 k/uL (1.3-7.7); Neutrophils % (A) 56 %; Platelet Count 178 k/uL (150-450); RDW 13.3 % (11.5-15.5); WBC 4.9 k/uL (3.8-10.6)
[2022-11-13] MEDS ORDERED: SUCCINYLCHOLINE CHLORIDE 200 MG/10 ML VIAL IV ONE (07:46)
[2022-11-13] MEDS ORDERED: PROPOFOL 10 MG/ML 20 ML VIAL IV ONE (07:46)
[2022-11-13] MEDS ORDERED: HYDROmorphone (PF) 1 MG/ML ONE (07:46)
[2022-11-13] MEDS ORDERED: KETOROLAC 15 MG/ML 1 ML VIAL ONE (07:46)
[2022-11-13] MEDS ORDERED: MIDAZOLAM 2 MG/2 ML VIAL ONE (07:46)
[2022-11-13] MEDS ORDERED: ROCURONIUM 10 MG/ML (5 ML VIAL) IV ONE (07:46)
[2022-11-13] MEDS ORDERED: LIDOCAINE 2% INJ 20 MG/ML (2 ML VIAL) ONE (07:46)
[2022-11-13] MEDS ORDERED: fentaNYL (PF) 50 MCG/ML 2 ML AMP ONE (07:46)
[2022-11-13] MEDS ORDERED: SODIUM CHLORIDE 0.9% 50 ML with ceFAZolin 2,000 MG IV ONE ×2 (08:25)
--- NOTE | 2022-11-13 09:27 | P.GSHP ---
History of Present Illness H&P Date: 11/13/22 Chief Complaint: Left breast cancer Is a 52-year-old female who has a previous history of left breast cancer. Patient underwent neoadjuvant therapy. Patient presents today for left modified radical mastectomy and right mastectomy with bilateral breast reconstruction. Past Medical History Past Medical History: Cancer, GERD/Reflux Additional Past Medical History / Comment(s): Hx palpitations - "chalked up to too many energy drinks, has not had any palpitaions since I stopped drinking them." LEFT BREAST CANCER 03/06/22, has port on left side, last chemo treatment 09/25/22, no radiation. Neuropathy to hands and feet since started chemo. History of Any Multi-Drug Resistant Organisms: None Reported Past Surgical History: Bariatric Surgery, Breast Surgery, Section Additional Past Surgical History / Comment(s): Left breast biopsy, sleeve gastrectomy 02/01/2014, port placed and removed X2 and third port placed. Past Anesthesia/Blood Transfusion Reactions: No Reported Reaction, Motion Sickness Past Psychological History: No Psychological Hx Reported Smoking Status: Never smoker Past Alcohol Use History: None Reported Past Drug Use History: None Reported - Past Family History Sister(s) Family Medical History: Cancer Additional Family Medical History / Comment(s): Two sisters had breast cancer. Father Family Medical History: Myocardial Infarction ([place]) Additional Family Medical History / Comment(s): Heart disease leading to heart attack. Medications and Allergies Home Medications Medication Instructions Recorded Confirmed Type Ascorbic Acid [Vitamin C] 1 tab PO DAILY 08/30/22 11/13/22 History Cholecalciferol [Vitamin D3 (125 2 tab PO DAILY 08/30/22 11/13/22 History Mcg = 5000 Iu)] Krill/Om-3/Dha/Epa/Phospho/Ast 1 each PO DAILY 08/30/22 11/13/22 History [[place]-3 Krill Oil 300 mg Sfgl] Multivitamin [Multivitamins Adult 1 tab PO DAILY 08/30/22 11/13/22 History Gummies] Gabapentin 600 mg PO TID 11/08/22 11/13/22 History Vitamin B Complex 1 each PO DAILY 11/08/22 11/13/22 History Allergies Allergy/AdvReac Type Severity Reaction Status Date / Time No Known Allergies Allergy Verified 11/13/22 06:49 Surgical - Exam Vital Signs Temp Pulse Resp BP Pulse Ox 97.5 F L 88 16 130/77 98 11/13/22 07:21 11/13/22 07:21 11/13/22 07:21 11/13/22 07:21 11/13/22 07:21 - General well developed, well nourished, no distress - Eyes PERRL - ENT normal pinna - Neck no masses - Respiratory normal expansion - Cardiovascular Rhythm: regular - Abdomen Abdomen: soft, non tender - Integumentary Breast exam shows no obvious mass of left breast. There are multiple healed chest wall incisions from previous Port-A-Cath Results - Labs 11/13/22 07:10 Assessment and Plan Assessment: History of left breast cancer. Patient undergo left modified radical mastectomy and right simple mastectomy with immediate implant reconstruction Dr. Loza.
[2022-11-13] MEDS ORDERED: NALOXONE 0.4 MG/ML 1 ML VIAL IV PRN (09:32)
[2022-11-13] MEDS ORDERED: LACTATED RINGERS 1,000 ML IV ONE ×3 (09:32→12:02)
[2022-11-13] MEDS ORDERED: HYDROcodone/APAP 5-325MG 1 EACH TAB PO PRN (09:32)
[2022-11-13] MEDS ORDERED: HYDROmorphone 0.5 MG/0.5 ML SYRINGE IVP PRN (09:32)
[2022-11-13] MEDS ORDERED: HYDROmorphone 1 MG/ML 1 ML SYRINGE IVP PRN (09:32)
[2022-11-13] MEDS ORDERED: ONDANSETRON 4 MG/2 ML VIAL IVP PRN (09:32)
--- NOTE | 2022-11-13 09:32 | P.OP ---
Date of Procedure: 11/13/22 Preoperative Diagnosis: Left breast cancer Postoperative Diagnosis: Left breast cancer Procedure(s) Performed: Left modified radical mastectomy Right simple mastectomy Implant reconstructions by Dr. Loza Anesthesia: JOSE JUAN Surgeon: Kunal Morrell Estimated Blood Loss (ml): 50 Pathology: other (Right simple mastectomy, left modified radical mastectomy) Condition: stable Disposition: PACU Description of Procedure: The patient had been previously marked by Dr. Meza in the preoperative hold area. The patient received general anesthesia. Her chest was prepped and draped usual fashion. The right simple mastectomy was performed. The cervical incision was followed on the breastAppeared usage cautery the mastectomy flaps were created to the level of the clavicle superiorly the sternum medially the inframammary crease inferiorly and the axilla laterally. Following this the breast was removed from the chest wall using electrocautery. Several small veins were coagulated. The specimen was sent to pathology. Dr. Meza started his implant reconstruction after the right simple mastectomy performed. I then moved to the left side. The breasts had been previously marked by Dr. Meza. The circular incision around the areola was incised and then using left cautery the mastectomy flaps were created. The mastectomy flaps were elevated level of the clavicle superiorly the sternum medially and the inframammary crease inferiorly and then the axilla laterally. The breast was then removed from the chest wall using left cautery. And then the clavipectoral fascia was opened. The ansa concert examined. The axillary vein was identified. The long thoracic and thoracodorsal nerve were identified. The gastric contents were dissected using meticulous dissection. Several small clips were applied to small small veins. The gastric contents were then sent to pathology with the breast. The breasts had been suture marked with the suture tag placed on the superior aspect of the breast. The wounds for hemostasis. There is no bleeding seen. Dr. Meza then proceeded with reconstruction of the left breast. Please see his note for details.
[2022-11-13] MEDS: HYDROmorphone 0.5 MG/0.5 ML SYRINGE IVP PRN ×2 (11:25→11:55)
[2022-11-13] MEDS: KETOROLAC 15 MG/ML 1 ML VIAL IVP SCH ×2 (16:33→17:59)
--- NOTE | 2022-11-13 18:17 | OP ---
OPERATIVE REPORT PREOPERATIVE DIAGNOSES: 1. Acquired loss, right and left breasts. 2. Invasive cancer, left breast. POSTOPERATIVE DIAGNOSES: 1. Acquired loss, left and right breasts. 2. Invasive cancer, left breast. PROCEDURES PERFORMED: 1. Immediate reconstruction, right breast following mastectomy with insertion of tissue senior sales executive, subsequent outpatient expansion. 2. Immediate reconstruction, left breast following mastectomy with insertion of tissue senior sales executive, subsequent outpatient expansion. 3. Implantation of reconstructive graft for right and left breast reconstruction. 4. Local tissue rearrangement with advancement flap for right and left breast reconstruction, 48 cm2. OPERATIVE INDICATIONS: The patient is a 52-year-old female with invasive cancer, left breast, to undergo left modified radical mastectomy, and she has elected to proceed with the right simple mastectomy. She desires breast reconstruction and was seen and evaluated in consultation for this purpose. It was elected to proceed with a tissue senior sales executive style technique. The patient has large ptotic pendulous breasts and required reduction of skin envelope, and some of this tissue will be used to assist with the reconstruction form of local flap. The patient is aware of potential risks and complications of surgery and has requested I perform the surgery. OPERATIVE PROCEDURE SUMMARY: The patient was seen in the preoperative area, markings were made, procedure was reviewed, and all questions were answered. She was transported to the operating room, where she was placed in supine position. Following induction of general anesthesia, the patient was prepped and draped in usual fashion. Dr. Morrell and his surgical team proceeded with the right simple mastectomy. Once this procedure was completed, Dr. Morrell's team proceeded with the left modified radical mastectomy, and I initiated the right breast reconstruction. The right mastectomy wound was opened with no active bleeding. The cavity was irrigated. The skin flaps had excellent viability and good thickness. I elected to proceed with a prepectoral reconstruction. The cavity was sized, and a tissue senior sales executive was opened onto the field. Both tissue expanders opened today were reference number [id number]. The senior sales executive opened on the right side serial number was [id number]. The device was only handled by surgeon. All air was extracted. It was irrigated with saline. The device was temporally placed in the reconstructive cavity above the pectorals major muscle. Markings were made for areas that required additional dissection to optimize placement. This was completed with cautery. The senior sales executive was now secured to the chest wall using the suture tabs and 2-0 Vicryl for the medial, inferomedial, superomedial, and inferolateral locations. SurgiMend reconstructive graft measuring 10 x 15 cm was opened onto the field. Two pieces were required for each reconstructive side. Once the SurgiMend was revitalized with room-temperature saline, the SurgiMend was pre-stretched and placed in the reconstructive cavity over the senior sales executive and just deep to the inframammary fold and covering the suture tab areas as well, where the SurgiMend material was secured using 3- 0 Vicryl sutures to the chest wall and suture tabs at several interrupted locations providing complete coverage of the exposed surfaces of the senior sales executive. The senior sales executive was filled to a volume of 350 mL using air, and then the 2 pieces of SurgiMend were trimmed to optimize the inset and sutured to each other where they crossed using 3-0 Vicryl. A 19 Ty channel drain was inserted into the reconstructive cavity. A large saline- soaked laparotomy pad was then placed. Once the left-sided modified radical mastectomy was completed, I initiated the left breast reconstruction. Then, the cavity was irrigated. Hemostasis was optimal. A second senior sales executive was opened onto the field, serial number [id number]. All air was extracted. The senior sales executive was temporarily placed in the cavity. Markings were made for areas that required additional dissection to optimize the inset and optimize symmetry with the right side. Dissection was performed using cautery here. The senior sales executive was re-placed into the cavity and secured using interrupted 2-0 Vicryl sutures through the suture tabs in the inferior central, inferomedially, inferolaterally, and superomedial locations. SurgiMend reconstructive graft measuring 10 x 15 cm was opened onto the field, additional 2 pieces. Both were revitalized with room-temperature saline. They were pre-stretched and placed into the reconstructive cavity securing medial, inferior, and inferolateral areas with separate pieces using interrupted 3-0 Vicryl sutures including securing to the suture tabs and chest wall. The senior sales executive was filled to a volume of 350 mL using air, and the SurgiMend where they crossed was trimmed with scissors and sutured to each other using interrupted 3-0 Vicryl sutures providing complete coverage of the exposed areas of the senior sales executive. Irrigation was performed. Hemostasis was excellent. Two 19 round Ty channel drains were opened onto the field for this side, one placed in the axillary node dissection base and the other placed for the reconstructive site. Both brought out through separate stab incisions in the right and left anterolateral chest wall. All drains were sutured into place with 2-0 Prolene today. The mastectomy procedures had been completed through a large circumareolar approach. This created large dog- ears, which were oriented to the lateral aspect allowing for closure of 4 cm [place] in the central portion. The central portion circular closure was to be completed with 2-0 Prolene deep dermal pursestring sutures, but initially, a stay suture was placed at the corners to identify the circular area. The lateral aspects were now used for local tissue rearrangement in skin-dermal flaps marking each area with a skin marker. Each side measured 6 x 4 cm2. They were de-epithelialized with 10-blade scalpel. Portions of the distal aspect were excised and sent to Pathology from each side using 10-blade scalpel. Hemostasis was maintained with cautery. The dermal-subcutaneous tissue flap was then placed in the lateral aspect and secured to the surface of the SurgiMend on each side using 3-0 Vicryl suture providing additional thickness along the lateral inferior aspect on each side. With this completed, the incisions were now closed. The central circular areas described were closed with 2-0 deep dermal pursestring and then finer approximation of the epidermis with interrupted anushka. This created a lateral straight line on each side. I now approximated the deep dermis level using inverted interrupted 4-0 Monocryl and then completing superficial, dermis, and epidermis closures with running 5-0 Prolene. Surgical weir were cleansed with saline and dried, and drains were connected to closed-bulb suction. All drains were patent. Bandages were placed using Adaptic over suture repairs followed by Kerlix squares secured with 3 Medipore tapes. The patient was then awakened from anesthetic, extubated, and transferred to the recovery room in good condition with stable vital signs. Estimated blood loss was 50 mL. There were no complications. MMODL / IJN: [id number] /
[2022-11-13] MEDS: ACETAMINOPHEN TAB 325 MG TAB PO PRN (21:51)
[2022-11-13] MEDS: GABAPENTIN 300 MG CAP PO SCH (21:53)
[2022-11-14] MEDS: KETOROLAC 15 MG/ML 1 ML VIAL IVP SCH ×3 (01:10→15:23)
[2022-11-14] MEDS: ACETAMINOPHEN TAB 325 MG TAB PO PRN ×2 (05:33→14:10)
[2022-11-14 08:44] LABS: Basophils % (A) 0 %; Eosinophils # (A) 0.2 k/uL (0-0.7); Eosinophils % (A) 3 %; HCT 30.8 % (34.0-46.0); HGB 10.5 gm/dL (11.4-16.0); Lymphocytes # (A) 1.4 k/uL (1.0-4.8); Lymphocytes % (A) 18 %; MCH 30.9 pg (25.0-35.0); MCHC 34.2 g/dL (31.0-37.0); MCV 90.4 fL (80.0-100.0); Mean Platelet Volume 8.6; Monocytes # (A) 0.4 k/uL (0-1.0); Monocytes % (A) 5 %; Neutrophils # (A) 5.5 k/uL (1.3-7.7); Neutrophils % (A) 71 %; Platelet Count 154 k/uL (150-450); RBC 3.41 m/uL (3.80-5.40); RDW 13.5 % (11.5-15.5); WBC 7.7 k/uL (3.8-10.6)
[2022-11-14 09:00] LABS: African American GFR (CKD) >90 (>60 ml/min/1.73 sqM); Anion Gap 4 mmol/L; Blood Urea Nitrogen 13 mg/dL (7-17); Carbon Dioxide 28 mmol/L (22-30); Chloride 106 mmol/L (98-107); Glucose 113 mg/dL (74-99); Non-African American GFR(CKD) >90 (>60 ml/min/1.73 sqM); Potassium 4.6 mmol/L (3.5-5.1); Sodium 138 mmol/L (137-145)
[2022-11-14] MEDS ORDERED: ASCORBIC ACID 500 MG TAB PO SCH (09:00)
[2022-11-14] MEDS ORDERED: NON FORMULARY DRUG (Vitamin B Complex [Vitamin B Complex] 1 EACH Capsule) PO SCH (09:00)
[2022-11-14] MEDS ORDERED: MULTIVITAMINS, THERA 1 EACH TAB PO SCH (09:00)
[2022-11-14] MEDS ORDERED: ENOXAPARIN 40 MG/0.4 ML SYRINGE SQ SCH (09:00)
[2022-11-14] MEDS: GABAPENTIN 300 MG CAP PO SCH ×2 (09:11→16:57)
[2022-11-14] MEDS: HYDROcodone/APAP 5-325MG 1 EACH TAB PO PRN ×2 (09:19→16:56)
[2022-11-14 09:34] VITALS: BP 105/71; PULSE 106; RESP 18; TEMP 98.4
--- NOTE | 2022-11-14 15:44 | P.DS ---
Providers Expected date of discharge: 11/14/22 Attending physician: Kunal Cardenas Consults: 11/13/22 09:32 Consult Physician Routine Consulting Provider: Len Sky Consult Reason/Comments: Medical management Do you want consulting provider notified?: Yes Primary care physician: Len Sky Hospital Course: Discharge diagnosis 1. Left breast cancer status post Left modified radical mastectomy, Right simple mastectomy, Implant reconstructions Hospital course This is a 52-year-old female with a known history of left breast cancer she is status post Left modified radical mastectomy, Right simple mastectomy by Dr. Cardenas and Implant reconstructions by Dr. Loza. Patient tolerated surgery well. Her pain is controlled. She is afebrile. She is tolerating diet. She has been up and ambulating. Patient seen and examined with Dr. cardenas. He is cleared her for discharge. Patient is still for discharge. Please refer to chart for any further details. Physician Vp Home Health note has been reviewed by physician. Signing provider agrees with the documented findings, assessment, and plan of care. Patient Condition at Discharge: Stable Plan - Discharge Summary Discharge Rx Participant: Yes New Discharge Prescriptions: New oxyCODONE HCL [OxyIR] 5 mg PO Q6H PRN 3 Days #12 tab PRN Reason: Pain Acetaminophen Tab [Tylenol] 1,000 mg PO Q6HR PRN #30 tablet PRN Reason: Pain Continue Cholecalciferol [Vitamin D3 (125 Mcg = 5000 Iu)] 2 tab PO DAILY Vitamin B Complex 1 each PO DAILY Multivitamin [Multivitamins Adult Gummies] 1 tab PO DAILY Krill/Om-3/Dha/Epa/Phospho/Ast [[place]-3 Krill Oil 300 mg Sfgl] 1 each PO DAILY Ascorbic Acid [Vitamin C] 1 tab PO DAILY Gabapentin 600 mg PO TID Discharge Medication List Ascorbic Acid [Vitamin C] 1 tab PO DAILY 08/30/22 [History] Cholecalciferol [Vitamin D3 (125 Mcg = 5000 Iu)] 2 tab PO DAILY 08/30/22 [History] Krill/Om-3/Dha/Epa/Phospho/Ast [[place]-3 Krill Oil 300 mg Sfgl] 1 each PO DAILY 08/30/22 [History] Multivitamin [Multivitamins Adult Gummies] 1 tab PO DAILY 08/30/22 [History] Gabapentin 600 mg PO TID 11/08/22 [History] Vitamin B Complex 1 each PO DAILY 11/08/22 [History] Acetaminophen Tab [Tylenol] 1,000 mg PO Q6HR PRN #30 tablet 11/14/22 [Rx] oxyCODONE HCL [OxyIR] 5 mg PO Q6H PRN 3 Days #12 tab 11/14/22 [Rx] Follow up Appointment(s)/Referral(s): Clyde Loza MD [STAFF PHYSICIAN] - 11/16/22 [facility], [NON-STAFF] - 1 Week Kunal Cardenas MD [STAFF PHYSICIAN] - 1 Week Activity/Diet/Wound Care/Special Instructions: No driving while taking OxyIR No lifting over 10 pounds Sponge baths until seen by surgeon Very light activity until you are reevaluated at your follow up appointment with your surgeon Keep a log of MAO drain output and bring with you to your follow-up appointment Milk/strip drains 2-3 times a day Discharge Disposition: HOME SELF-CARE
== END 2022-11-14 17:10 | disposition home or self-care (01) ==
LOC: OR 06:24 → 4FBP 10:45 → OR 11-14 17:10
PROVIDERS: ATTEND Surgery
DX: C50.912 Malignant neoplasm of unspecified site of left female breast (principal); K21.9 Gastro-esophageal reflux disease without esophagitis; Z90.49 Acquired absence of other specified parts of digestive tract; Z98.890 Other specified postprocedural states; Z80.3 Family history of malignant neoplasm of breast; Z80.49 Family history of malignant neoplasm of other genital organs; Z85.3 Personal history of malignant neoplasm of breast; Z79.899 Other long term (current) drug therapy
CPT/HCPCS: 80048; 85025 ×2; 19303; 19357; 14301; 19307; J1100; J2405; J0690; J1650; J1885 ×2; J1170; J1644

== ENCOUNTER → 2023-02-08 | Outpatient (CLI) | payer OTHER ==
--- NOTE | 2023-02-08 14:31 | US ---
EXAMINATION TYPE: US transvaginal DATE OF EXAM: 02/08/2023 COMPARISON: Pelvic ultrasound 02/08/2012 CLINICAL HISTORY: Z14.8. BRCA gene positive. TECHNIQUE: Transvaginal (TV). EXAM MEASUREMENTS: Uterus: Surgically absent Endometrial Stripe: Surgically absent Right Ovary: -- cm Left Ovary: 1.9 x 1.2 x 1.4 cm Multiple transvaginal approach grayscale and color Doppler ultrasound images of the pelvis were obtai mikel. 1. Uterus: Surgically absent 2. Endometrium: Surgically absent 3. Right Ovary: Obscured by overlying bowel gas 4. Left Ovary: wnl 5. Bilateral Adnexa: wnl 6. Posterior cul-de-sac: wnl Uterus is surgically absent. Right ovary is not visualized around bowel gas. Unremarkable appearance of the left ovary. No free fluid. IMPRESSION: 1. No acute process. 2. Postsurgical changes from hysterectomy. 3. Nonvisualization of the right ovary due to overlying bowel gas.
== END | disposition home or self-care (01) ==
LOC: RADUSWWP 13:36
PROVIDERS: ATTEND Internal Medicine Hematology & Oncology
DX: C50.412 Malignant neoplasm of upper-outer quadrant of left female breast (principal); M12.9 Arthropathy, unspecified; Z14.8 Genetic carrier of other disease; Z17.1 Estrogen receptor negative status [ER-]
CPT/HCPCS: 76830

== ENCOUNTER → 2023-04-26 | Outpatient (CLI) | payer OTHER ==
--- NOTE | 2023-04-27 09:03 | XR ---
EXAMINATION TYPE: XR foot limited RT DATE OF EXAM: 04/26/2023 CLINICAL HISTORY: pain TECHNIQUE: Frontal, lateral and oblique images of the right foot are obtained. COMPARISON: None. FINDINGS: There is no acute fracture/dislocation evident. Moderate degenerative change first metatar boyd phalangeal joint. Mild hallux valgus deformity. The overlying soft tissue appears unremarkable. IMPRESSION: There is no acute fracture or dislocation. ICD 10 NO FRACTURE, INITIAL EVALUATION
== END | disposition home or self-care (01) ==
LOC: RADXRMAIN 15:42
PROVIDERS: ATTEND Family Medicine
DX: M19.071 Primary osteoarthritis, right ankle and foot (principal)